=== PATIENT | male | born 1950 | race Caucasian/White ===

== ENCOUNTER → 2017-10-09 03:48 | Outpatient (CLI) | payer MEDICARE, MEDICAID, SELFPAY ==
[2017-10-09 10:31] LABS: Abs Immature Grans 0.09 k/cumm (0.0-0.09); Absolute Basophil Count 0.02 k/cumm (0.0-0.2); Absolute Eosinophil Count 0.07 k/cumm (0.0-0.7); Absolute Lymphocyte Count 0.83 k/cumm (1.2-3.4); Absolute Monocyte Count 1.26 k/cumm (0.11-0.7); Absolute Neutrophil Count 8.96 k/cumm (1.2-6.7); Basophils % 0.2; Eosinophils % 0.6; HCT 32.6 % (40.0-50.0); HGB 11.2 g/dL (13.5-17.5); Immature Grans % 0.8; Lymphocytes % 7.4; Mean Corp. HGB Concentration 34.4 g/dL (32.0-36.0); Mean Corpuscular Hemoglobin 35.3 pg (27.0-33.0); Mean Corpuscular Volume 102.8 fL (80-95); Mean Platelet Volume 8.8 fL (8.0-11.0); Monocytes % 11.2; Neutrophils % 79.8; Platelet Count 327 x1000/uL (130-400); RBC 3.17 m/cumm (4.50-6.00); RBC Distribution Width 14.8 % (11.8-14.1); White Blood Cell Count 11.23 k/cumm (4.4-10.8)
[2017-10-09 10:49] LABS: ALT 17 U/L (12-78); AST 20 U/L (15-37); Albumin 3.3 g/dL (3.4-5.0); Alkaline Phosphatase 107 U/L (46-116); BUN 36 mg/dL (7-18); Bilirubin, Total 0.2 mg/dL (0.2-1.0); CREATININE 1.26 mg/dL (0.70-1.30); Calcium 9.8 mg/dL (8.5-10.1); Chloride 96 mmol/L (98-107); Estimated GFR 57.26 (mL/min/1.73m2); Glucose 108 mg/dL (70-100); Potassium 4.2 mmol/L (3.5-5.1); Sodium 130 mmol/L (136-145); Total Protein 8.8 g/dL (6.4-8.2)
== END ==
PROVIDERS: PCP Internal Medicine; Visit Provider Internal Medicine Hematology & Oncology
DX: C34.91 Malignant neoplasm of unspecified part of right bronchus or lung (principal)
CPT/HCPCS: 36415; 80053; 85025

== ENCOUNTER 2017-10-15 14:46 | Emergency (ER) | payer MEDICARE, MEDICAID, SELFPAY ==
[2017-10-15 14:52] VITALS: BP 111/68; PULSE 81; RESP 17; TEMP 36.8; O2SAT 99
[2017-10-15 15:04] VITALS: BP 100/68; BP 79/57; BP 95/64; PULSE 83; PULSE 85; PULSE 96
--- NOTE | 2017-10-15 15:12 | ED.GENADUL ---
Disposition Clinical Impression: Dehydration Disposition: HOME Condition: Good Instructions: Dehydration (ED) Additional Instructions: Home to rest. Small, frequent sips of fluids to maintain hydration. Maintain your cancer center appointments. Return to the emergency department if you have any acute concerns. Medical Decision Making - EKG Data -: EKG Interpreted by Me 10/15/17 15:48 Normal sinus rhythm, rate 82, QRS narrow, was unremarkable. No ST segment elevation - Medical Decision Making Very pleasant 67-year-old male presents on referral from [facility] for hypotension he is undergoing chemotherapy status post radiation for right lung adenocarcinoma. States he has had increased diarrhea and decreased p.o. intake. He is afebrile, pleasant, somewhat dehydrated in appearance. Vital signs are stable at rest. Differential diagnosis includes dehydration, electrolyte abnormality, progressive cancer, less likely tumor lysis syndrome. Patient had IV access established, given fluid bolus, referred for laboratory testing. White blood cell count 5, hematocrit 31, platelets 193. Sodium 129, potassium 4.1, chloride 96, bicarb 22, BUN 32, creatinine 1.0, magnesium 1.7, AST 21, ALT 17, troponin 0.04 Patient ordered and ate a dinner tray without difficulty. Improved following 1 L fluid resuscitation. Consistent with dehydration, now improved. Stable and improved, appropriate for discharge to home. He will follow-up with a cancer center as planned. History of Present Illness - General Chief complaint: GenMedical Stated complaint: LOW BLOOD PRESSURE Time Seen by Provider: 10/15/17 15:01 Source: patient, RN notes reviewed Mode of arrival: ambulatory Limitations: no limitations - History of Present Illness Initial comments: 67-year-old [facility] presents on referral from [facility]. He was supposed to report to the cancer center for IV fluids yesterday, but was unable to make the appointment. He presents emerged from today complaining of the gradual onset over 2-3 days time of lightheadedness with rising, sensation of dizziness without syncope. He has not fallen or hurt himself. Has not had chest pain, shortness of breath. He has been nauseated and states that he has had some increased loose stool as well. No leg pain or swelling. 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 Not a surgical candidate. States he has recently begun chemotherapy per - Related Data Lactose-Reduced Food [Boost] 237 ml PO DAILY PRN #6 bottle 06/17/17 Acetaminophen [Acetaminophen 8 Hour] 650 mg PO Q8H PRN #50 tab-cap 09/02/17 Prochlorperazine Maleate 5 Days #20 09/02/17 Allergies Allergy/AdvReac Type Severity Reaction Status Date / Time adhesive Allergy Unknown rash Unverified 04/29/17 11:22 ethyl hexyl glycerol Allergy Uncoded 01/21/17 01:21 Review of Systems Other: 6 systems reviewed, otherwise negative. Patient will note diffuse pain that is nonfocal and long-standing. Past Medical History - Past Medical History Medical history: cancer (Colon cancer; lung cancer), COPD, PAD Adenocarcinoma of the right lung Surgical history: cancer surgery, other (Ostomy, femoral or popliteal bypass) - Social History Drug use: marijuana General Exam - General Limitations: no limitations General appearance: alert, in no apparent distress - Head Head exam: Present: atraumatic, normocephalic - Eye Eye exam: Present: PERRL, EOMI - ENT ENT exam: Present: normal exam, mucous membranes dry - Neck Neck exam: Present: normal inspection - Respiratory Respiratory exam: Present: rhonchi, other (Rhonchi right). Absent: respiratory distress - Cardiovascular Cardiovascular Exam: Present: regular rate, normal rhythm - GI/Abdominal GI/Abdominal exam: Present: soft. Absent: distended, tenderness - Extremities Exam Extremities exam: Present: normal inspection, normal capillary refill. Absent: joint swelling - Neurological Exam Neurological exam: Present: alert, oriented X3 - Psychiatric Psychiatric exam: Present: normal affect, normal mood - Skin Skin exam: Present: warm, dry, intact Course Vital Signs - 24 hr 10/15/17 10/15/17 14:52 15:04 Temperature 36.8 C Pulse 81 Pulse [Sitting] 85 Pulse [Standing 96 H ] Pulse [Supine] 83 Respiratory 17 Rate Blood Pressure 111/68 Blood Pressure 95/64 [Sitting] Blood Pressure 79/57 [Standing] Blood Pressure 100/68 [Supine] Pulse Oximetry 99
[2017-10-15] MEDS: Normal Saline 1,000 ML 1000 ML IV (15:36)
[2017-10-15] MEDS: HYDROmorphone 2 MG/ML VIAL 0.5 MG IVP (15:36)
[2017-10-15 15:43] LABS: Absolute Basophil Count 0.01 k/cumm (0.0-0.2); Absolute Eosinophil Count 0.03 k/cumm (0.0-0.7); Absolute Lymphocyte Count 0.32 k/cumm (1.2-3.4); Absolute Monocyte Count 0.05 k/cumm (0.11-0.7); Absolute Neutrophil Count 4.65 k/cumm (1.2-6.7); Basophils % 0.2; Eosinophils % 0.6; HCT 31.2 % (40.0-50.0); HGB 10.7 g/dL (13.5-17.5); Lymphocytes % 6.3; Mean Corp. HGB Concentration 34.3 g/dL (32.0-36.0); Mean Corpuscular Hemoglobin 35.2 pg (27.0-33.0); Mean Corpuscular Volume 102.6 fL (80-95); Neutrophils % 91.9; Platelet Count 193 x1000/uL (130-400); RBC 3.04 m/cumm (4.50-6.00); RBC Distribution Width 14.1 % (11.8-14.1); White Blood Cell Count 5.06 k/cumm (4.4-10.8)
[2017-10-15 16:09] LABS: ALT 17 U/L (12-78); AST 21 U/L (15-37); Alkaline Phosphatase 87 U/L (46-116); Anion Gap 10.5 mmol/L (3-11); BUN 32 mg/dL (7-18); Bilirubin, Total 0.8 mg/dL (0.2-1.0); CO2 22.5 mmol/L (21.0-32.0); CREATININE 1.05 mg/dL (0.70-1.30); Calcium 9.4 mg/dL (8.5-10.1); Chloride 96 mmol/L (98-107); Glucose 97 mg/dL (70-100); Magnesium 1.7 mg/dL (1.8-2.4); Potassium 4.1 mmol/L (3.5-5.1); Sodium 129 mmol/L (136-145); Total Protein 8.1 g/dL (6.4-8.2); Troponin I 0.04 ng/mL (0.00-0.06)
[2017-10-15 16:48] VITALS: BP 108/71; PULSE 87; RESP 19; TEMP 36.7; O2SAT 98
== END 2017-10-15 16:49 | disposition home or self-care (01) ==
PROVIDERS: Emergency Provider Emergency Medicine; PCP Internal Medicine
DX: E86.0 Dehydration (principal); C34.91 Malignant neoplasm of unspecified part of right bronchus or lung; R19.7 Diarrhea, unspecified; R42 Dizziness and giddiness; Z79.899 Other long term (current) drug therapy; J44.9 Chronic obstructive pulmonary disease, unspecified; F17.210 Nicotine dependence, cigarettes, uncomplicated
CPT/HCPCS: 93005; 96361; 96374; 99284 ×2; 36415; 80053; 83735; 84484; 85025; 93010

== ENCOUNTER 2017-10-30 09:04 | Outpatient (CLI) | payer MEDICARE, MEDICAID, SELFPAY ==
[2017-10-30 09:34] LABS: Abs Immature Grans 0.03 k/cumm (0.0-0.09); Absolute Basophil Count 0.01 k/cumm (0.0-0.2); Absolute Eosinophil Count 0.04 k/cumm (0.0-0.7); Absolute Lymphocyte Count 0.64 k/cumm (1.2-3.4); Absolute Monocyte Count 0.72 k/cumm (0.11-0.7); Basophils % 0.2; Eosinophils % 0.7; HCT 27.2 % (40.0-50.0); HGB 9.1 g/dL (13.5-17.5); Immature Grans % 0.5; Lymphocytes % 10.8; Mean Corp. HGB Concentration 33.5 g/dL (32.0-36.0); Mean Corpuscular Hemoglobin 35.5 pg (27.0-33.0); Mean Corpuscular Volume 106.3 fL (80-95); Mean Platelet Volume 9.7 fL (8.0-11.0); Monocytes % 12.1; Neutrophils % 75.7; Platelet Count 198 x1000/uL (130-400); RBC 2.56 m/cumm (4.50-6.00); RBC Distribution Width 15.1 % (11.8-14.1); White Blood Cell Count 5.94 k/cumm (4.4-10.8)
[2017-10-30 09:40] LABS: Magnesium 1.6 mg/dL (1.8-2.4)
[2017-10-30 09:49] LABS: Diff Comment Diff Reviewed; Hypochromasia 1+; Macrocytosis 1+
[2017-10-30 09:51] LABS: ALT 21 U/L (12-78); AST 26 U/L (15-37); Albumin 3.1 g/dL (3.4-5.0); Alkaline Phosphatase 102 U/L (46-116); Anion Gap 11.4 mmol/L (3-11); BUN 27 mg/dL (7-18); Bilirubin, Total 0.2 mg/dL (0.2-1.0); CO2 20.6 mmol/L (21.0-32.0); CREATININE 1.42 mg/dL (0.70-1.30); Calcium 9.5 mg/dL (8.5-10.1); Chloride 96 mmol/L (98-107); Estimated GFR 49.88 (mL/min/1.73m2); Glucose 106 mg/dL (70-100); Potassium 4.8 mmol/L (3.5-5.1); Sodium 128 mmol/L (136-145); Total Protein 8.8 g/dL (6.4-8.2)
== END 2017-10-30 09:24 ==
PROVIDERS: Family Medicine; PCP Internal Medicine; Visit Provider Internal Medicine Hematology & Oncology
DX: C34.91 Malignant neoplasm of unspecified part of right bronchus or lung (principal); E83.42 Hypomagnesemia; E87.6 Hypokalemia; E87.1 Hypo-osmolality and hyponatremia; R19.7 Diarrhea, unspecified; E86.0 Dehydration; Z79.899 Other long term (current) drug therapy; Z93.3 Colostomy status
CPT/HCPCS: 36415; 80053; 83735; 85025

== ENCOUNTER 2017-12-09 10:17 | Outpatient (CLI) | payer MEDICARE, MEDICAID, SELFPAY ==
--- NOTE | 2017-12-09 14:08 | DI.RAD_ITS ---
SYMPTOMS/DIAGNOSIS: PAIN IN LT SHOULDER, M25.512, MALIGNANT NEOPLASM OF BRONCHUS OR LUNG, C34.91, ? BONY METS LEFT SHOULDER: Six views were provided. The bony structures are normally mineralized. There are minimal degenerative changes involving the glenohumeral and AC joint.
== END 2017-12-09 10:37 ==
PROVIDERS: PCP Internal Medicine; Visit Provider Internal Medicine
DX: M25.512 Pain in left shoulder (principal); M19.012 Primary osteoarthritis, left shoulder; C34.91 Malignant neoplasm of unspecified part of right bronchus or lung
CPT/HCPCS: 73030

== ENCOUNTER → 2017-12-31 09:41 | Outpatient (BNVA) | payer MEDICARE, MEDICAID, SELFPAY | PROVIDERS: PCP Internal Medicine; Referring Provider Internal Medicine; Visit Provider Orthopaedic Surgery | DX: M75.102 Unspecified rotator cuff tear or rupture of left shoulder, not specified as traumatic (principal); M25.512 Pain in left shoulder | CPT/HCPCS: 20610; 99204; 99214; J1040 ==